=== PATIENT | female | born 1975 | race Caucasian/White ===

== ENCOUNTER 2018-06-06 20:16 | Emergency (ER) | payer SELFPAY ==
[2018-06-06] MEDS ORDERED: HYDROcodone/Acetaminophen 5/325 mg Tablet ONE (20:54)
--- NOTE | 2018-06-06 21:07 | RAD ---
LEFT HAND 3 VIEWS: Date: 06/06/18 HISTORY: Injury. Pain. Fourth digit pain and swelling. FINDINGS: Minimally displaced fracture involving the distal aspect of the proximal phalanx of the fourth digit. There is associated soft tissue swelling and deformity. Remainder of the left hand is unremarkable. IMPRESSION: Fourth digit injury as described above. POS: PPP
== END 2018-06-06 21:33 | disposition home or self-care (01) ==
LOC: ERS 20:16
DX: S62.615A Displaced fracture of proximal phalanx of left ring finger, initial encounter for closed fracture (principal); X50.1XXA Overexertion from prolonged static or awkward postures, initial encounter